=== PATIENT | male | born 1970 | race African-American/Black ===

== ENCOUNTER 2022-11-08 14:51 | Inpatient (IN) | payer MEDICAID, OTHER ==
[~2022-11-08] VITALS: Ht 170.2 cm; Wt 93.7 kg
[2022-11-08] MEDS ORDERED: INSULIN LISPRO (HUMAN) 100 UNITS/ML ML SC ONE ×2 (15:30→17:45)
[2022-11-08] MEDS ORDERED: SODIUM CHLORIDE 0.9% 1,000 ML IV ONE ×2 (15:30→17:45)
[2022-11-08 16:09] LABS: Eosinophils # (auto) 0.2 10 ^3/uL (0-0.8); Lymphocytes # (auto) 2.6 10 ^3/uL (0.4-5.4); Neutrophils # (auto) 3.6 10 ^3/uL (1.6-8.6); White Blood Cell 6.7 10^3/uL (4.4-10.8)
[2022-11-08 16:12] LABS: Basophils # (auto) 0 10 ^3/uL (0-0.2); Basophils % (auto) 0.6 % (0.0-2.0); Eosinophils % (auto) 2.5 % (0.0-7.0); Hematocrit 42.6 % (41.0-53.0); Hemoglobin 13.5 g/dL (13.5-17.5); Mean Corpuscular Hemoglobin 22.7 pg (28.0-32.0); Mean Corpuscular Hgb Conc. 31.6 g/dL (32.0-36.0); Mean Corpuscular Volume 71.8 fL (80.0-100.0); Monocytes # (auto) 0.3 10 ^3/uL (0-1.3); Monocytes % (auto) 4.9 % (0.0-12.0); Nucleated Red Blood Cells % 0.2 %; Red Blood Cells 5.93 10^6/uL (4.5-5.90); Red Cell Distribution Width 14.2 % (11.8-14.3)
[2022-11-08 16:20] LABS: Urine Bacteria NONE SEEN /hpf (None Seen); Urine Blood Negative /uL (Negative); Urine WBC <1 /hpf (0 - 3)
[2022-11-08 16:27] LABS: Albumin 3.4 g/dL (3.4-5.0); Calcium 8.5 mg/dL (8.5-10.1)
[2022-11-08 16:36] LABS: BUN/Creatinine Ratio 15.8 (10.0-20.0); Bilirubin, Total 0.2 mg/dL (0.2-1.0); Total Protein 7.4 g/dL (6.4-8.2)
[2022-11-08] MEDS ORDERED: ACETAMINOPHEN 325 MG TAB PO PRN (22:00)
[2022-11-08] MEDS ORDERED: DEXTROSE (50%) 50ML SYRG IV PRN (22:15)
[2022-11-08] MEDS ORDERED: InsuLIN REG 1unit/0.01ml Soln (100units/ml) SC ONE (23:00)
[2022-11-08 23:22] LABS: Cholesterol 237 mg/dL (< 200); HDL Cholesterol 32 mg/dL (40-59); LDL Cholesterol 103 mg/dL (< 100); Triglycerides 1629 mg/dL (< 150)
[2022-11-08] MEDS: SODIUM CHLORIDE 0.9% 1,000 ML IV SCH (23:34)
[2022-11-09] MEDS: ACCU-CHEK COMFORT CURVE STRIP VI SCH ×2 (06:14→11:30)
[2022-11-09] MEDS: InsuLIN REG 1unit/0.01ml Soln (100units/ml) SC SCH ×2 (06:14→12:56)
[2022-11-09 06:25] LABS: Basophils # (auto) 0 10 ^3/uL (0-0.2); Basophils % (auto) 0.5 % (0.0-2.0); Monocytes # (auto) 0.5 10 ^3/uL (0-1.3); Neutrophils # (auto) 3.4 10 ^3/uL (1.6-8.6); Nucleated Red Blood Cells % 0.2 %
[2022-11-09 06:27] LABS: Eosinophils # (auto) 0.2 10 ^3/uL (0-0.8); Eosinophils % (auto) 3.5 % (0.0-7.0); Hematocrit 39.1 % (41.0-53.0); Hemoglobin 12.3 g/dL (13.5-17.5); Lymphocytes % (auto) 42.1 % (10.0-50.0); Mean Corpuscular Hemoglobin 22.2 pg (28.0-32.0); Mean Corpuscular Hgb Conc. 31.4 g/dL (32.0-36.0); Mean Corpuscular Volume 70.8 fL (80.0-100.0); Monocytes % (auto) 6.4 % (0.0-12.0); Neutrophils % (auto) 47.5 % (37.0-80.0); Red Blood Cells 5.53 10^6/uL (4.5-5.90); White Blood Cell 7.2 10^3/uL (4.4-10.8)
[2022-11-09 06:42] LABS: Potassium 4.2 mmol/L (3.5-5.1)
[2022-11-09 06:47] LABS: BUN/Creatinine Ratio 18.9 (10.0-20.0); Calcium 8.1 mg/dL (8.5-10.1)
[2022-11-09 06:49] LABS: Bilirubin, Total 0.2 mg/dL (0.2-1.0); Total Protein 6.6 g/dL (6.4-8.2)
[2022-11-09 08:07] VITALS: BP 127/78
[2022-11-09] MEDS ORDERED: ENOXAPARIN SOD 40 MG/0.4 ML SYRINGE SC SCH (10:00)
[2022-11-09] MEDS: SODIUM CHLORIDE 0.9% 1,000 ML IV SCH (11:20)
[2022-11-09] MEDS ORDERED: BLOO1KIT60 XX (12:50)
[2022-11-09] MEDS ORDERED: METF-371 PO (12:50)
[2022-11-09] MEDS ORDERED: FENO5TAB PO (12:50)
[2022-11-09] MEDS ORDERED: SYRI25MI4 XX (12:50)
[2022-11-09] MEDS ORDERED: INSUINJ37 SC (12:50)
[2022-11-09] MEDS ORDERED: LANC-347 XX (12:50)
[2022-11-09] MEDS ORDERED: InsuLIN REG 1unit/0.01ml Soln (100units/ml) SC SCH (22:00)
== END 2022-11-09 15:39 | disposition home or self-care (01) | DRG 420 ==
LOC: ER 14:51 → OVERFLOW 21:52
PROVIDERS: ADMIT Nurse Practitioner Family; ATTEND Hospitalist
DX: E11.00 Type 2 diabetes mellitus with hyperosmolarity without nonketotic hyperglycemic-hyperosmolar coma (NKHHC) (principal); N17.9 Acute kidney failure, unspecified; E87.1 Hypo-osmolality and hyponatremia; E66.01 Morbid (severe) obesity due to excess calories; I10 Essential (primary) hypertension; Z68.32 Body mass index [BMI] 32.0-32.9, adult
CPT/HCPCS: 36415; 36600; 80053; 80061; 81001; 82805; 82962; 83036; 83735; 83880; 84443; 85025; 87426; 96360; 96372; G0378; J1815

== ENCOUNTER 2023-06-11 18:40 | Emergency (ER) | payer MEDICAID ==
[~2023-06-11] VITALS: Ht 170.2 cm; Wt 97.4 kg
[~2023-06-11 18:40] MED LIST: BLOO1KIT60 XX; FENO5TAB PO; INSUINJ37 SC; LANC-347 XX; METF-371 PO; SYRI25MI4 XX
[2023-06-11 20:12] LABS: Basophils # (auto) 0.1 10 ^3/uL (0-0.2); Basophils % (auto) 0.7 % (0.0-2.0); Eosinophils # (auto) 0.2 10 ^3/uL (0-0.8); Eosinophils % (auto) 3.1 % (0.0-7.0); Hematocrit 41.4 % (41.0-53.0); Hemoglobin 12.7 g/dL (13.5-17.5); Lymphocytes # (auto) 3.4 10 ^3/uL (0.4-5.4); Lymphocytes % (auto) 43.8 % (10.0-50.0); Mean Corpuscular Hemoglobin 22.3 pg (28.0-32.0); Mean Corpuscular Hgb Conc. 30.8 g/dL (32.0-36.0); Mean Corpuscular Volume 72.4 fL (80.0-100.0); Monocytes # (auto) 0.5 10 ^3/uL (0-1.3); Monocytes % (auto) 6.2 % (0.0-12.0); Neutrophils # (auto) 3.6 10 ^3/uL (1.6-8.6); Neutrophils % (auto) 46.2 % (37.0-80.0); Nucleated Red Blood Cells % 0.1 %; Red Blood Cells 5.71 10^6/uL (4.5-5.90); Red Cell Distribution Width 15.3 % (11.8-14.3); White Blood Cell 7.9 10^3/uL (4.4-10.8)
[2023-06-11 20:29] LABS: INR 0.95 (0.9-1.15); Partial Thromboplastin Time 29.5 SEC (24.5-34.5)
[2023-06-11 20:36] LABS: Alanine Aminotransferase 32 U/L (7-40); Albumin 4.5 g/dL (3.2-4.8); Alkaline Phosphatase 103 U/L (46-116); Anion Gap 5 (5-15); Aspartate Aminotransferase 24 U/L (13-40); BUN/Creatinine Ratio 10.9 (10.0-20.0); Blood Urea Nitrogen 14 mg/dL (9-23); Calcium 9.4 mg/dL (8.7-10.4); Carbon Dioxide 29 mmol/L (20-30); Chloride 102 mmol/L (98-107); Glucose 264 mg/dL (74-106); Magnesium 1.8 mg/dL (1.6-2.6); Potassium 4.5 mmol/L (3.5-5.1); Sodium 136 mmol/L (136-145)
[2023-06-11 20:37] LABS: Bilirubin, Total 0.3 mg/dL (0.2-1.0); Total Protein 6.7 g/dL (5.7-8.2)
[2023-06-11] MEDS ORDERED: KETOROLAC TROMETH 60MG/2ML VIAL IM ONE (21:30)
[2023-06-11] MEDS ORDERED: CYCL-839 PO (23:03)
[2023-06-11] MEDS ORDERED: ACET-6 PO (23:03)
[2023-06-11 23:46] VITALS: PULSE 67; RESP 16; O2SAT 97
[2023-06-11 23:51] VITALS: BP 164/103; PULSE 67; RESP 16; TEMP 97.9; O2SAT 97
== END 2023-06-11 23:57 | disposition home or self-care (01) ==
LOC: ER 18:40
DX: R07.89 Other chest pain (principal); R51.9 Headache, unspecified; R53.1 Weakness; I10 Essential (primary) hypertension; E11.9 Type 2 diabetes mellitus without complications; F17.210 Nicotine dependence, cigarettes, uncomplicated; Z90.49 Acquired absence of other specified parts of digestive tract; Z79.4 Long term (current) use of insulin; Z79.899 Other long term (current) drug therapy; V89.2XXA Person injured in unspecified motor-vehicle accident, traffic, initial encounter; Y93.89 Activity, other specified; Y92.410 Unspecified street and highway as the place of occurrence of the external cause; Y99.8 Other external cause status
CPT/HCPCS: 36415; 71045; 73030; 74018; 76700; 80053; 83735; 83880; 84484; 85025; 85610; 85730; 93005; 96372; 99285; J1885